=== PATIENT | female | born 1995 | race African-American/Black ===

== ENCOUNTER 2022-01-02 16:23 | Outpatient (REF) | payer MEDICAID, SELFPAY ==
--- NOTE | ~2022-01-02 | US_ITS ---
EXAMINATION: US SOFT TISSUE NECK CLINICAL INFORMATION: Enlarged lymph nodes COMPARISON: None TECHNIQUE: Ultrasound of the soft tissues of the right neck. FINDINGS: There are 6 level 5 lymph nodes identified in the right neck. The largest nodes are as follows: Level 5A: 1.8 x 0.7 x 1.4 cm. abnormal benji architecture with thick cortex Level 5A: 1.6 x 0.9 x 1.6 cm. abnormal benji architecture with thick cortex and bladder absent hilum and irregular margins US/US soft tiss head and/or neck IMPRESSION: 6 right level 5 lymph nodes. The largest lymph nodes are enlarged and demonstrate abnormal ultrasound morphology. This would be amenable to ultrasound-guided aspiration.
== END 2022-01-02 16:24 | disposition home or self-care (01) ==
LOC: HO.US 16:23
PROVIDERS: PCP Nurse Practitioner; Visit Provider Nurse Practitioner
DX: R59.0 Localized enlarged lymph nodes (principal)
CPT/HCPCS: 76536

== ENCOUNTER 2022-01-30 08:58 | Outpatient (REF) | payer MEDICAID, SELFPAY ==
--- NOTE | ~2022-01-30 | US_ITS ---
EXAMINATION: US ULTRASOUND-GUIDED FINE-NEEDLE ASPIRATION BIOPSY RIGHT POSTERIOR NECK LYMPH NODE CLINICAL INFORMATION: At least 2 level 5A abnormal-size neck lymph nodes measuring 1.8 and 1.6 cm. COMPARISON: Ultrasound soft tissue neck 01/02/2022. TECHNIQUE: Following explaining ultrasound-guided fine-needle aspiration biopsy of right posterior neck lymph nodes procedure, benefits and risks, a written consent was obtained. Patient was placed in the left semi-decubitus position with the neck extended on ultrasound stretcher. Preliminary ultrasound imaging was obtained through the left posterior neck and 2 optimal sites were selected and marked on the skin. The area of the left posterior neck was cleaned and draped in the usual sterile manner. 1% lidocaine was injected at both marked sites. Under sterile ultrasound guidance, a 25-gauge needle was advanced 3 times in the deeper superior neck lymph node and a fine-needle aspiration performed. A 2-pass fine-needle aspiration was performed with the inferior more superficial lymph node labeled B. There is adequate lymphoid tissue seen on biopsy of the second lymph node slightly superficial and inferior. Postprocedure, complete hemostasis was achieved at the puncture site. Patient tolerated the procedure well. Patient was monitored by a nurse but no conscious sedation administered. FINDINGS: There are 2 abnormal-sized lymph nodes; one is deeper and superior and the second lesion is superficial and slightly inferior. Both of these lesions underwent fine-needle biopsy aspiration. There were no immediate complications. US/US guided fine needle asp IMPRESSION: Successful ultrasound-guided biopsy of right neck level 5A lymph nodes. The deeper superior and superior-inferior lymph nodes which appeared large and abnormal size were biopsied.
[2022-01-30] MEDS: Lidocaine HCl 1 % MPF 5 ML VIAL SUBCUT (10:07)
== END 2022-01-30 08:59 | disposition home or self-care (01) ==
LOC: HO.US 08:58
PROVIDERS: Radiology Diagnostic Radiology; Visit Provider Nurse Practitioner Family
DX: R59.9 Enlarged lymph nodes, unspecified (principal)
CPT/HCPCS: 10005; 36415; 88172; 88173; 88177; 88184; 88185

== ENCOUNTER 2023-09-25 11:57 | Outpatient (REF) | payer MEDICAID, SELFPAY ==
[2023-09-25 14:11] LABS: Estimated Average Glucose 105 mg/dL; Hemoglobin A1c % 5.3 % (<6.0)
[2023-09-25 14:16] LABS: Alanine Aminotransferase 26 U/L (0-31); Albumin Level 4.2 g/dL (3.5-5.0); Alkaline Phosphatase 68 U/L (39-117); Anion Gap 11 (12-20); Aspartate Amino Transferase 24 U/L (5-31); Bilirubin Total 0.5 mg/dL (0.0-1.0); Blood Urea Nitrogen 7 mg/dL (9-16); Calcium 9.4 mg/dL (8.4-10.2); Carbon Dioxide 23 mmol/L (22-29); Chloride 106 mmol/L (96-108); Cholesterol 152 mg/dL (<200); Estimated Glomerular Filt Rate > 60; Glucose Random 105 mg/dL (60-115); HDL Cholesterol 52 mg/dL (>40); LDL Cholesterol Calculated 84 mg/dL (<100); Potassium 4.1 mmol/L (3.3-5.1); Sodium 136 mmol/L (135-145); Total Protein 8.6 g/dL (6.5-8.0); Triglycerides 81 mg/dL (<150)
[2023-09-25 14:19] LABS: TSH reflex Free T4 0.92 uIU/mL (0.32-4.0)
[2023-09-26 04:27] LABS: HBc Num1 0.15 S/CO (0.00-0.79); HBsAGNum1 0.33 S/CO (0.00-0.99); Hepatitis B Core Antibody Nonreactive (Nonreactive); Hepatitis B Surface Antigen Negative (Negative); ~Hepatitis B Surface Antibody REACTIVE (Nonreactive)
[2023-09-26 14:24] LABS: Hepatitis B Viral DNA Qn - cp NOT DETECTED Log IU/mL (NOT DETECTED); Hepatitis B Viral DNA Qn-IU/mL NOT DETECTED (NOT DETECTED)
== END 2023-09-25 11:58 | disposition home or self-care (01) ==
LOC: HO.HHCL 11:57
PROVIDERS: Visit Provider Nurse Practitioner
DX: Z11.59 Encounter for screening for other viral diseases (principal); E66.09 Other obesity due to excess calories; Z68.32 Body mass index [BMI] 32.0-32.9, adult
CPT/HCPCS: 36415; 80053; 80061; 83036; 84443; 86704; 86706; 87340; 87517

== ENCOUNTER 2023-10-23 12:16 | Outpatient (REF) | payer OTHER, SELFPAY ==
[2023-10-25 19:29] LABS: TS Negative Control Passed; TS Panel A 0; TS Panel B 0; TS Positive Control Passed; TSpotTB Negative (Negative)
== END 2023-10-23 12:17 | disposition home or self-care (01) ==
LOC: HO.HHCL 12:16
PROVIDERS: Visit Provider Nurse Practitioner
DX: Z11.1 Encounter for screening for respiratory tuberculosis (principal)
CPT/HCPCS: 36415; 86481

== ENCOUNTER 2023-11-27 18:30 | Outpatient (REF) | payer MEDICAID, SELFPAY ==
[2023-11-29 19:28] LABS: C. trachomatis RNA TMA NOT DETECTED (NOT DETECTED); Candida glabrata RNA NOT DETECTED (NOT DETECTED); Candida species RNA NOT DETECTED (NOT DETECTED); N. gonorrhoeae RNA TMA NOT DETECTED (NOT DETECTED); Trichomonas vaginalis RNA NOT DETECTED (NOT DETECTED)
[2023-12-04 02:53] LABS: HPV mRNA E6/E7 rflx Not Detected (Not Detected)
[2023-12-04 13:53] LABS: C. trachomatis RNA TMA NOT DETECTED (NOT DETECTED); N. gonorrhoeae RNA TMA NOT DETECTED (NOT DETECTED); Trichomonas (NAAT) NOT DETECTED (NOT DETECTED)
== END 2023-11-27 18:31 | disposition home or self-care (01) ==
LOC: HO.HHCLNP 18:30
PROVIDERS: Visit Provider Nurse Practitioner
DX: Z12.4 Encounter for screening for malignant neoplasm of cervix (principal); Z11.51 Encounter for screening for human papillomavirus (HPV)
CPT/HCPCS: 36415; 81513; 87481; 87491; 87591; 87624; 87661; 88142

== ENCOUNTER 2024-02-09 03:23 | Emergency (ER) | payer MEDICAID, SELFPAY ==
[2024-02-09] VITALS (7 sets, daily range): BP systolic 114–146; BP diastolic 60–98; PULSE 87–122; RESP 16–20; TEMP 36.7–37.1; O2SAT 96–99; BMI 32.5
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
--- NOTE | 2024-02-09 03:34 | MHC.EDTECH ---
Patient came in by ambulance,changed into hospital attire,vitals taken and patient placed on the passenger barge master,call alvares in reach
[2024-02-09] MEDS: Ondansetron ODT 4 MG TAB.RAPDIS TRANSLINGU (03:55)
[2024-02-09] MEDS: Acetaminophen 325 MG TABLET 975 MG PO (04:43)
--- NOTE | 2024-02-09 05:53 | MHC.EDTECH ---
Hourly rounds and vitals completed,patient is resting,call alvares in reach
[2024-02-09] MEDS: ondansetron HCL 4 MG/2 ML VIAL IVPUSH (07:22)
[2024-02-09] MEDS: Diphth,Pertus(ACell),Tet Adult 0.5 ML SYRINGE IM (07:22)
[2024-02-09] MEDS: 0.9 % Sodium Chloride 1,000 ML 999 ML IV (07:22)
[2024-02-09] MEDS: Ibuprofen 600 MG TABLET PO (07:22)
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
== END 2024-02-09 10:57 | disposition home or self-care (01) ==
PROVIDERS: Emergency Provider Emergency Medicine
DX: S00.03XA Contusion of scalp, initial encounter (principal); S06.0X0A Concussion without loss of consciousness, initial encounter; Y04.2XXA Assault by strike against or bumped into by another person, initial encounter; Y93.89 Activity, other specified; Y92.9 Unspecified place or not applicable; Y99.9 Unspecified external cause status; R51.9 Headache, unspecified; R11.0 Nausea
CPT/HCPCS: 70450; 72125; 73120; 90471; 90715; 96361; 96374; 99284; 99285; J2405

== ENCOUNTER 2024-02-28 14:19 | Outpatient (REF) | payer MEDICAID, SELFPAY ==
[2024-02-28 16:51] LABS: Anion Gap 12 (12-20); Blood Urea Nitrogen 6 mg/dL (9-16); Calcium 9.5 mg/dL (8.4-10.2); Carbon Dioxide 25 mmol/L (22-29); Chloride 108 mmol/L (96-108); Estimated Glomerular Filt Rate > 60; Glucose Random 91 mg/dL (60-115); Sodium 141 mmol/L (135-145)
[2024-02-28 18:26] LABS: Creatinine Urine 38.46 mg/dL; Microalbumin Urine < 5.0 mg/L
== END 2024-02-28 14:20 | disposition home or self-care (01) ==
LOC: HO.HHCL 14:19
PROVIDERS: Visit Provider Nurse Practitioner
DX: I10 Essential (primary) hypertension (principal)
CPT/HCPCS: 36415; 80048; 82043; 82570